=== PATIENT | female | born 1995 | race Caucasian/White ===

== ENCOUNTER → 2020-01-24 08:57 | Outpatient (BNVA) | payer OTHER, SELFPAY | PROVIDERS: PCP Nurse Practitioner Family; Referring Provider Nurse Practitioner Family; Visit Provider Nurse Practitioner | DX: Z76.89 Persons encountering health services in other specified circumstances (principal) ==

== ENCOUNTER 2020-03-17 06:12 | Outpatient (REF) | payer OTHER, SELFPAY | END 2020-03-17 06:13 | disposition home or self-care (01) | LOC: HO.LAB 06:12 | PROVIDERS: PCP Nurse Practitioner Family; Visit Provider Internal Medicine | DX: Z20.828 Contact with and (suspected) exposure to other viral communicable diseases (principal) | CPT/HCPCS: C9803; U0003 ==

== ENCOUNTER 2020-06-26 09:30 | Outpatient (REF) | payer OTHER, SELFPAY ==
[2020-06-26 10:35] LABS: MANUAL DIFF FLAG NO
[2020-06-26 10:48] LABS: Basophils Percent Auto 0.6 % (0-2); Eosinophils Absolute Auto 0.2 X10*3/uL (0.0-0.4); Eosinophils Percent Auto 3.2 % (0-4); Hematocrit 40.1 % (37-47); Hemoglobin 13.2 g/dl (12.0-16.0); Imm Gran Abs Auto 0.04 X10*3/uL (0.00-0.03); Imm Gran Pct Auto 0.6 % (0.0-0.4); Lymphocytes Absolute Auto 1.5 X10*3/uL (1.2-4.9); Lymphocytes Percent Auto 22.6 % (20-40); Mean Corpuscular HGB Conc 32.9 g/dl (31.0-35.0); Mean Corpuscular Hemoglobin 31.6 pg (27.0-33.0); Mean Corpuscular Volume 95.9 fL (80-98); Mean Platelet Volume 10.5 fL (9.4-12.3); Monocytes Absolute Auto 0.6 X10*3/uL (0.1-1.2); Monocytes Percent Auto 8.3 % (2-11); Neutrophils Absolute Auto 4.3 X10*3/uL (2.0-8.3); Neutrophils Percent Auto 64.7 % (45-73); Platelet Count 177 X10*3/uL (160-400); Red Blood Count 4.18 X10*6/uL (4.20-5.50); Red Cell Distribution Width 11.5 % (11.0-16.0); White Blood Count 6.7 X10*3/uL (4.8-10.8)
[2020-06-26 11:31] LABS: Alanine Aminotransferase 12 U/L (0-31); Albumin Level 4.1 g/dL (3.5-5.0); Alkaline Phosphatase 66 U/L (39-117); Anion Gap 12 (12-20); Aspartate Amino Transferase 16 U/L (5-31); Bilirubin Total 0.4 mg/dL (0.0-1.0); Blood Urea Nitrogen 13 mg/dL (9-16); Calcium 8.9 mg/dL (8.4-10.2); Carbon Dioxide 24 mmol/L (22-29); Chloride 106 mmol/L (96-108); Creatinine Clr Calc Pharmacy 118.5; Estimated Glomerular Filt Rate > 60; Glucose Fasting 79 mg/dL (60-99); Potassium 4.3 mmol/L (3.3-5.1); Sodium 138 mmol/L (135-145)
[2020-06-26 11:37] LABS: TSH reflex Free T4 0.93 uIU/mL (0.32-4.0)
== END 2020-06-26 09:31 | disposition home or self-care (01) ==
LOC: HO.LAB 09:30
PROVIDERS: PCP Nurse Practitioner Family; Visit Provider Nurse Practitioner Family
DX: N30.90 Cystitis, unspecified without hematuria (principal); R11.0 Nausea
CPT/HCPCS: 36415; 80053; 84443; 85025

== ENCOUNTER → 2020-07-04 14:59 | Outpatient (BNVA) | payer OTHER, SELFPAY | PROVIDERS: PCP Nurse Practitioner Family; Visit Provider Surgery ==

== ENCOUNTER 2020-11-07 13:08 | Outpatient (REF) | payer OTHER, SELFPAY ==
[2020-11-08 06:01] LABS: CT PCR NOT DETECTED (Not Detect.); NG PCR NOT DETECTED (Not Detect.)
== END 2020-11-07 13:09 | disposition home or self-care (01) ==
LOC: HO.LAB 13:08
PROVIDERS: PCP Nurse Practitioner Family; Visit Provider Obstetrics & Gynecology
DX: Z01.419 Encounter for gynecological examination (general) (routine) without abnormal findings (principal); Z11.3 Encounter for screening for infections with a predominantly sexual mode of transmission
CPT/HCPCS: 87491; 87591; 88142

== ENCOUNTER 2020-12-04 10:17 | Outpatient (REF) | payer OTHER, SELFPAY ==
--- NOTE | ~2020-12-04 | XR_ITS ---
EXAMINATION: XR CHEST 2 VIEWS CLINICAL INFORMATION: Chest pain. COMPARISON: Prior chest radiographs as remote as 04/13/2007. TECHNIQUE: Frontal and lateral views of the chest were obtained. FINDINGS: The heart, great vessels, pulmonary vasculature and mediastinum are normal. The lungs show no focal infiltrate, effusion or pneumothorax. There is no acute osseous abnormality. XR/XR chest 2V IMPRESSION: No active cardiopulmonary disease.
[2020-12-04 11:15] LABS: D Dimer < 200 NG/ML
[2020-12-04 11:38] LABS: Alanine Aminotransferase 29 U/L (0-31); Albumin Level 4.4 g/dL (3.5-5.0); Alkaline Phosphatase 66 U/L (39-117); Anion Gap 13 (12-20); Aspartate Amino Transferase 22 U/L (5-31); Bilirubin Total 0.5 mg/dL (0.0-1.0); Blood Urea Nitrogen 13 mg/dL (9-16); Calcium 9.2 mg/dL (8.4-10.2); Carbon Dioxide 21 mmol/L (22-29); Chloride 110 mmol/L (96-108); Cholesterol 181 mg/dL; Estimated Glomerular Filt Rate > 60; Glucose Fasting 81 mg/dL (60-99); HDL Cholesterol 52 mg/dL; LDL Cholesterol Calculated 118 mg/dl; Potassium 4.2 mmol/L (3.3-5.1); Sodium 140 mmol/L (135-145); Total Protein 7.6 g/dL (6.5-8.0); Triglycerides 56 mg/dL
[2020-12-04 11:46] LABS: HCG Quantitative < 2 mIU/mL; TSH reflex Free T4 1.07 uIU/mL (0.32-4.0)
[2020-12-04 13:48] LABS: Glucose Urine UA NEG (NEG); Leukocyte Esterase Urine NEG (NEG); Nitrite Urine NEG (NEG); UACC Culture Trigger NO; Urine Blood TRACE (NEG); Urine Ketones NEG (NEG); Urine Protein NEG (NEG-TRACE)
[2020-12-04 13:50] LABS: Appearance Urine CLEAR; Color Urine YELLOW
[2020-12-04 14:10] LABS: RBC Urine 0-2 /HPF (0); Squamous Epithelial Cell Urine TRACE /LPF; WBC Urine 0 /HPF (0-4)
== END 2020-12-04 10:18 | disposition home or self-care (01) ==
LOC: HO.LAB 10:17
PROVIDERS: PCP Nurse Practitioner Family; Visit Provider Nurse Practitioner Family
DX: Z00.00 Encounter for general adult medical examination without abnormal findings (principal); R07.89 Other chest pain; N92.6 Irregular menstruation, unspecified
CPT/HCPCS: 36415; 71046; 80053; 80061; 81001; 84443; 84702; 85379

== ENCOUNTER → 2021-01-16 13:39 | Outpatient (BNVA) | payer OTHER, SELFPAY | PROVIDERS: PCP Nurse Practitioner Family; Referring Provider Nurse Practitioner Family; Visit Provider Nurse Practitioner ==

== ENCOUNTER 2021-02-06 10:22 | Outpatient (REF) | payer OTHER, SELFPAY ==
--- NOTE | ~2021-02-06 | US_ITS ---
EXAMINATION: US ABDOMEN COMPLETE CLINICAL INFORMATION: Epigastric pain. COMPARISON: Ultrasound abdomen 06/15/2019 TECHNIQUE: Real-time imaging of the abdominal viscera. FINDINGS: PANCREAS: Normal. ABDOMINAL AORTA: The proximal, mid, and distal segments are normal in caliber. INFERIOR VENA CAVA: Visualized portions are normal. LIVER: Normal. The liver is normal in size. The liver contour is normal. Parenchymal echogenicity is normal. No focal hepatic lesion. There is no intrahepatic biliary duct dilatation seen. GALLBLADDER: Normal. The gallbladder is physiologically distended without evidence of stones, sludge, polyps, wall thickening or pericholecystic fluid. COMMON BILE DUCT: Normal in caliber measuring 0.20 cm in diameter. RIGHT KIDNEY: Normal. No hydronephrosis. No renal calculi or focal parenchymal lesions. The kidney measures 10.3 cm in maximum dimension. LEFT KIDNEY: Normal. No hydronephrosis. No renal calculi or focal parenchymal lesions. The kidney measures 11.7 cm in maximum dimension. SPLEEN: Normal. The spleen measures 9.4 cm in maximum dimension. FREE FLUID: None. US/US abdomen complete IMPRESSION: Unremarkable study. No evidence for cholelithiasis or cholecystitis. No free fluid. No hydronephrosis.
== END 2021-02-06 10:23 | disposition home or self-care (01) ==
LOC: HO.US 10:22
PROVIDERS: PCP Nurse Practitioner Family; Visit Provider Nurse Practitioner Family
DX: R10.13 Epigastric pain (principal); K90.41 Non-celiac gluten sensitivity
CPT/HCPCS: 76700

== ENCOUNTER 2021-03-05 09:04 | Day surgery (SDC) | payer OTHER, SELFPAY ==
[2021-02-27 10:29] VITALS: BMI 30.2
--- NOTE | 2021-02-28 10:27 | P.CONAN_ITS ---
Documented by User: Bethany Bradford NP 02/28/21 10:32 HPI - Anesthesia Eval Consult details Narrative: 25yo F for Upper Endoscopy PMFSH Active Problems Active Problems: All Active Problems (Updated 01/16/21 @ 14:22 by JUSTINA Wilson) Nausea (Acute) Constipation (Acute) IUD check up (Acute) Well woman exam (Acute) Infected cyst of skin (Acute) Recurrent bacterial cystitis (Acute) Concussion (Acute) Epigastric pain (Acute) Gluten intolerance (Acute) Past Medical History Medical History Anxiety Depression High cholesterol Infected cyst of skin Nausea Family History Family History Father No problems noted. Mother No problems noted. Brother No problems noted. Surgical History Surgical History History of ankle surgery History of oral surgery Social History Social History Housing: House Alcohol intake: current Alcohol intake frequency: holidays/special occasions only Alcohol type: wine Patient Tobacco Use Status: Never used Tobacco Second Hand Smoke Exposure: Yes Use of substances other than those prescribed or required for medical reasons: No Are you DNR?: No Advance Directives: No Advance Directives Information Provided: Yes service: No Current occupational status: employed Current occupation: [employer] Current occupational exposures/hazards: No Meds Allergies Allergy/AdvReac Type Severity Reaction Status Date / Time clindamycin [CLINDAMYCIN] Allergy Mild RASH Verified 11/29/20 11:28 amoxicillin [AMOXICILLIN] Allergy Unknown RASH Verified 11/29/20 11:28 azithromycin [AZITHROMYCIN] AdvReac Unknown VOMITING Verified 11/29/20 11:28 Home Medications Medication Instructions Recorded Confirmed Last Taken Type ezetimibe 10 mg tablet 10 mg PO DAILY 06/26/20 01/16/21 Unknown History fluoxetine 20 mg capsule 20 mg PO DAILY 06/26/20 01/16/21 Unknown History propranolol 80 mg capsule,24 80 mg PO BEDTIME 06/26/20 01/16/21 Unknown History hr,extended release levonorgestrel 20 mcg/24 hours (7 INTRAUTERINE 11/07/20 01/16/21 Unknown History yrs) 52 mg intrauterine device (Mirena) sumatriptan succinate 100 mg tablet 100 mg PO Q4H 11/29/20 01/16/21 Unknown History lansoprazole 30 mg capsule,delayed 30 mg PO DAILY 01/16/21 01/16/21 Unknown History release Exam Exam Date and Time: February 28, 2021 1027 Height,Weight and Vital Signs: Height 5 ft 3 in Weight 77.564 kg Pertinent Lab Results Pertinent Lab Results: Laboratory Tests 06/26/20 12/04/20 09:55 10:15 WBC 6.7 Hgb 13.2 Hct 40.1 Plt Count 177 Sodium 140 Potassium 4.2 Chloride 110 H Carbon Dioxide 21 L BUN 13 Creatinine 0.76 D-Dimer 11/2020 <200 Narrative Narrative: EKG 11/2020 NSR CXR 11/2020 Nml Assessment and Plan Assessment Anesthesia Assessment: Chart Reviewed Documented by User: Umm Chu MD 03/05/21 10:15 [facility] Past Medical History Medical History Anxiety Depression High cholesterol Infected cyst of skin Nausea Family History Family History Father No problems noted. Mother No problems noted. Brother No problems noted. Family history of problems with anesthesia: No Surgical History Surgical History History of ankle surgery History of oral surgery History of Problems with Anesthesia: No Social History Social History Housing: House Alcohol intake: current Alcohol intake frequency: holidays/special occasions only Alcohol type: wine Patient Tobacco Use Status: Never used Tobacco Second Hand Smoke Exposure: Yes Use of substances other than those prescribed or required for medical reasons: No Are you DNR?: No Advance Directives: No Advance Directives Information Provided: Yes service: No Current occupational status: employed Current occupation: [employer] Current occupational exposures/hazards: No Meds Allergies Allergy/AdvReac Type Severity Reaction Status Date / Time clindamycin [CLINDAMYCIN] Allergy Mild RASH Verified 11/29/20 11:28 amoxicillin [AMOXICILLIN] Allergy Unknown RASH Verified 11/29/20 11:28 azithromycin [AZITHROMYCIN] AdvReac Unknown VOMITING Verified 11/29/20 11:28 Home Medications Medication Instructions Recorded Confirmed Last Taken Type ezetimibe 10 mg tablet 10 mg PO DAILY 06/26/20 01/16/21 Unknown History fluoxetine 20 mg capsule 20 mg PO DAILY 06/26/20 01/16/21 Unknown History propranolol 80 mg capsule,24 80 mg PO BEDTIME 06/26/20 01/16/21 Unknown History hr,extended release levonorgestrel 20 mcg/24 hours (7 INTRAUTERINE 11/07/20 01/16/21 Unknown History yrs) 52 mg intrauterine device (Mirena) sumatriptan succinate 100 mg tablet 100 mg PO Q4H 11/29/20 01/16/21 Unknown History lansoprazole 30 mg capsule,delayed 30 mg PO DAILY 01/16/21 01/16/21 Unknown History release Exam Airway Mallampati Class: II TM Dist: >3cm Neck ROM: Full Heart: rrr Lungs: cta Assessment and Plan Assessment Anesthesia Assessment: Anesthesia Plan Discussed and Chart Reviewed Final Anesthetic Review Family History of Problems with Anesthesia: No History of Problems with Anesthesia: No NPO: Yes ASA Class: II Final Preanesthetic Review: No Changes in Pt Med Stat, Meds/Allgs Chart Reviewed and Consent Obtained/Reviewed Patient Risk: Intermediate Procedure Risk: Intermediate Anesthetic Plan Anesthetic Plan: MAC: Disposition: Standard PACU
--- NOTE | 2021-03-05 09:44 | MHC.SHP ---
Pre-Procedural Eval Section A Date of Service: 03/05/21 Section B Chief Complaint: Epigastric Pain Details of Present Illness: nausea and early satiety Relevant Family History (Specify if Yes): No Relevant Social History: None Present Medications: see Short Stay Collaborative assessment Medical History: Significant History (Anxiety Depression High cholesterol Infected cyst of skin Nausea) History of Previous Operations: No relevant previous surgery Allergies: Allergies Allergy/AdvReac Type Severity Reaction Status Date / Time clindamycin [CLINDAMYCIN] Allergy Mild RASH Verified 11/29/20 11:28 amoxicillin [AMOXICILLIN] Allergy Unknown RASH Verified 11/29/20 11:28 azithromycin [AZITHROMYCIN] AdvReac Unknown VOMITING Verified 11/29/20 11:28 Review of Systems Sugical H&P ROS: Negative: Constitution, Cardiovascular, Respiratory, Neurological, Psychiatric, Hem-Onc, Allergic/Immunologic, Gastrointestinal, Genitourinary, Musculoskeletal, Integumentary, Endocrine and Eyes/Ears/Nose/Throat Exam Surgical H&P Exam: Normal: HEENT, Normal: Heart, Normal: Lungs, Normal: Extremities, Normal: Abdomen, Normal: Skin and Normal: Neurological Plan Diagnosis/Plan: Unchanged I have reviewed the history and physical and performed a pertinent physical examination on my patient. No changes have occurred unless specified.
[2021-03-05 10:07] VITALS: BP 118/81; PULSE 74; RESP 16; TEMP 36.8; O2SAT 99; BMI 29.2
[2021-03-05] MEDS: Lactated Ringers 1,000 ML 100 ML IVCONT (10:14)
--- NOTE | 2021-03-05 10:38 | P.BOP_ITS ---
Brief Operative Note Date of Service: 03/05/21 Pre-op diagnosis: nausea, and satiety Post-op diagnosis: same Procedure: see op note Surgeon: Jessica Suero MD Anesthesia: MAC Was an Lumber Stacker Driver used for this Procedure?: No Estimated blood loss (mL): 0 Condition: stable Disposition: PACU
--- NOTE | 2021-03-05 10:38 | W.PM.OPN ---
Operative Note Operative Note Date of Service: 03/05/21 Narrative: Procedure Description: EGD FLEXIBLE TRANSORAL UPPER GASTROINTESTINAL ENDOSCOPY UPPER ENDOSCOPY Consent: Indications for the procedure and potential complications of bleeding, perforation, reaction to medications and missed diagnosis were discussed with the patient and informed consent was obtained. Instrument: Olympus GIF H 190 J mid size upper endoscope Monitoring: Vital signs and clinical assessment, continuous EKG monitoring, Pulse oximetry, Carbon Dioxide monitoring and blood pressure monitoring were done throughout the procedure. Procedure: The patient was placed in the left lateral decubitis position and pre-procedure medications were administered and a bite block was placed. The endoscope was inserted into the mouth and advanced under direct vision to the third part of duodenum. A careful inspection was made as the upper endoscope was withdrawn including a retroflexed examination of the proximal stomach; Findings and interventions are described below. Findings: Larynx:normal Esophagus: GE junction at 36 cm, diaphragm hiatus at 38 cm, consistent with small sliding hiatal herni, LA grade B erosive esophagitis noted with inflammation and erythema around GEJ--bx taken from GEJ, and distal and proximal esophagus in separate jars. LES seemed lax. Stomach: Patchy gastric erythema. Biopsies were obtained. Grade 2 flap valve on retroflexed examination of the cardia. Duodenum: Normal bulb and descending duodenum, bx taken Intervention: Biopsies as noted above Impression/Findings: erosive esophagitis gastritis small hiatal hernia PLAN: Reflux precautions \confirm PPI history, may need to change formulation if compliant if bx neg and sx persist then GES to r/o gastroparesis
[2021-03-05 10:46] LABS: UPreg QC Valid YES; Urine Pregnancy NEGATIVE (NEGATIVE)
[2021-03-05 11:08] VITALS: BP 98/57; PULSE 81; RESP 16; TEMP 36.7; O2SAT 95
[2021-03-05] MEDS: ondansetron HCL 4 MG/2 ML VIAL IVPUSH (11:28)
[2021-03-05 11:30] VITALS: BP 101/65; PULSE 70; RESP 18; TEMP 36.7; O2SAT 100
== END 2021-03-05 12:23 | disposition home or self-care (01) ==
PROVIDERS: Nurse Practitioner; PCP Nurse Practitioner Family; Visit Provider Internal Medicine Gastroenterology
PROC: 0DJ08ZZ Inspection of Upper Intestinal Tract, Via Natural or Artificial Opening Endoscopic (ICD-10-PCS; CPT 43235; principal; 2021-03-05 10:10)
DX: K29.50 Unspecified chronic gastritis without bleeding (principal); K22.10 Ulcer of esophagus without bleeding; K44.9 Diaphragmatic hernia without obstruction or gangrene; K90.41 Non-celiac gluten sensitivity; K59.00 Constipation, unspecified; E78.00 Pure hypercholesterolemia, unspecified; F41.8 Other specified anxiety disorders; Z79.899 Other long term (current) drug therapy; Z88.0 Allergy status to penicillin; Z88.1 Allergy status to other antibiotic agents
CPT/HCPCS: 43239; 81025; 88305; 88342; J2405

== ENCOUNTER 2021-03-19 13:24 | Outpatient (REF) | payer OTHER, SELFPAY ==
[2021-03-22 08:06] LABS: Transglutaminase Ab IgG <1.0 U/mL; Transglutaminase IgA <1.0 U/mL
[2021-03-23 10:00] LABS: Gliadin Deamidated IgA Ab 3.2 U/mL; Gliadin Deamidated IgG Ab 31.7 U/mL
== END 2021-03-19 13:25 | disposition home or self-care (01) ==
LOC: HO.LAB 13:24
PROVIDERS: PCP Nurse Practitioner Family; Referring Provider Nurse Practitioner Family; Visit Provider Nurse Practitioner
DX: R10.13 Epigastric pain (principal); K90.41 Non-celiac gluten sensitivity; K22.10 Ulcer of esophagus without bleeding
CPT/HCPCS: 36415; 83516

== ENCOUNTER 2021-04-09 11:14 | Outpatient (REF) | payer OTHER, SELFPAY ==
[2021-04-09 12:30] LABS: Binax Internal Control QC Valid; Binax Lot number: 9864; Binax Now Covid-19 Ag Positive (Negative)
== END 2021-04-09 11:15 | disposition home or self-care (01) ==
LOC: HO.LAB 11:14
PROVIDERS: Visit Provider Internal Medicine
DX: Z20.822 Contact with and (suspected) exposure to COVID-19 (principal)
CPT/HCPCS: 36415; C9803

== ENCOUNTER → 2021-04-30 13:39 | Outpatient (BNVA) | payer OTHER, SELFPAY | PROVIDERS: PCP Nurse Practitioner Family; Referring Provider Nurse Practitioner Family; Visit Provider Nurse Practitioner ==

== ENCOUNTER 2021-11-12 13:38 | Outpatient (REF) | payer OTHER, SELFPAY ==
[2021-11-13 02:25] LABS: CT PCR NOT DETECTED (Not Detect.); NG PCR NOT DETECTED (Not Detect.)
== END 2021-11-12 13:39 | disposition home or self-care (01) ==
LOC: HO.LAB 13:38
PROVIDERS: Visit Provider Obstetrics & Gynecology
DX: Z30.432 Encounter for removal of intrauterine contraceptive device (principal)
CPT/HCPCS: 58301; 87491; 87591

== ENCOUNTER 2021-11-29 08:02 | Outpatient (REF) | payer OTHER, SELFPAY ==
[2021-11-29 08:21] LABS: MANUAL DIFF FLAG NO
[2021-11-29 08:51] LABS: Basophils Percent Auto 0.4 % (0-2); Eosinophils Absolute Auto 0.2 X10*3/uL (0.0-0.4); Eosinophils Percent Auto 3.1 % (0-4); Imm Gran Abs Auto 0.04 X10*3/uL (0.00-0.03); Imm Gran Pct Auto 0.6 % (0.0-0.4); Lymphocytes Absolute Auto 1.6 X10*3/uL (1.2-4.9); Lymphocytes Percent Auto 22.3 % (20-40); Mean Corpuscular HGB Conc 34.2 g/dl (31.0-35.0); Mean Corpuscular Hemoglobin 32.3 pg (27.0-33.0); Mean Corpuscular Volume 94.3 fL (80.0-98.0); Mean Platelet Volume 10.2 fL (9.4-12.3); Monocytes Absolute Auto 0.6 X10*3/uL (0.1-1.2); Monocytes Percent Auto 9.1 % (2-11); Neutrophils Absolute Auto 4.5 x10*3/uL (2.0-8.3); Neutrophils Percent Auto 64.5 % (45-73); Platelet Count 200 X10*3/uL (160-400); Red Blood Count 4.03 X10*6/uL (4.20-5.50); Red Cell Distribution Width 11.6 % (11.0-16.0)
[2021-11-29 09:22] LABS: Alanine Aminotransferase 27 U/L (0-31); Albumin Level 3.9 g/dL (3.5-5.0); Alkaline Phosphatase 76 U/L (39-117); Anion Gap 14 (12-20); Aspartate Amino Transferase 19 U/L (5-31); Bilirubin Total 0.7 mg/dL (0.0-1.0); Blood Urea Nitrogen 16 mg/dL (9-16); Calcium 8.6 mg/dL (8.4-10.2); Carbon Dioxide 21 mmol/L (22-29); Chloride 106 mmol/L (96-108); Estimated Glomerular Filt Rate > 60; Glucose Random 94 mg/dL (60-115); Iron 84 mcg/dL (30-160); Percent Iron Saturation 28 % (15-50); Potassium 4.1 mmol/L (3.3-5.1); Sodium 137 mmol/L (135-145); Total Iron Binding Capacity 295 mcg/dL (228-428); Unsaturated Iron Binding 211 ug/dL
[2021-11-29 09:44] LABS: Ferritin 49 ng/mL (10-122)
[2021-11-29 10:01] LABS: Vitamin B12 358 pg/mL (200-900)
[2021-11-29 17:30] LABS: Appearance Urine Cloudy; Color Urine Yellow; Glucose Urine UA Negative (Negative); Leukocyte Esterase Urine Small (1+) (Negative); Nitrite Urine Negative (Negative); Urine Blood Negative (Negative); Urine Ketones Negative (Negative); Urine Protein Negative (Neg-Trace)
[2021-11-29 18:22] LABS: Bacteria Urine 2+ (None Seen); Hyaline Casts Urine 0-2 /LPF (0-2); RBC Urine 0-2 /HPF (0-2); Squamous Epithelial Cell Urine >20 /HPF (0-2); UACC Culture Trigger YES
[2021-12-01 08:57] LABS: A. Phagocytphilium DNA,RT-PCR NOT DETECTED (NOT DETECTED); Babesia Microti DNA, RT-PCR NOT DETECTED (NOT DETECTED); Borrelia Miyamotoi,DNA RT-PCR NOT DETECTED (NOT DETECTED); E.Chaffeensis DNA RT-PCR NOT DETECTED (NOT DETECTED); Lyme(Borrelia ssp)DNA RT-PCR NOT DETECTED (NOT DETECTED)
[2021-12-02 15:28] LABS: Source-Tick borne disease BLOOD
[2021-12-05 11:47] LABS: Anti Nuclear Antibody Screen NEGATIVE (NEGATIVE)
== END 2021-11-29 08:03 | disposition home or self-care (01) ==
LOC: HO.LAB 08:02
PROVIDERS: PCP Nurse Practitioner Family; Visit Provider Nurse Practitioner Family
DX: R53.83 Other fatigue (principal)
CPT/HCPCS: 36415; 80053; 81001; 82607; 82728; 82746; 83540; 84443; 85025; 86038; 86039; 87086; 87798; 87801

== ENCOUNTER 2021-12-03 10:20 | Outpatient (REF) | payer OTHER, SELFPAY ==
--- NOTE | ~2021-12-03 | FL_ITS ---
EXAMINATION: FL BARIUM SWALLOW CLINICAL INFORMATION: Ulcer of esophagitis. COMPARISON: None. TECHNIQUE: Barium swallow examination is performed using fluoroscopic evaluation in addition to multiple fluoroscopic spot views. The patient is imaged both upright and prone and using both thick and thin sulfate along with effervescent granules. Barium tablet was also administered. Fluoroscopy time: 0.6 minutes DAP: 2.8 Gy-cm2. Images: 36. FINDINGS: The swallowing mechanism is normal. No aspiration or penetration is seen. There is a small sliding-type hiatal hernia. There is mild gastroesophageal reflux. The esophagus otherwise normal. No ulcer is appreciated. Tablet passed freely into the stomach. FL/FL barium swallow IMPRESSION: Small sliding-type hiatal hernia and mild gastroesophageal reflux.
== END 2021-12-03 10:21 | disposition home or self-care (01) ==
LOC: HO.XRAY 10:20
PROVIDERS: Visit Provider Nurse Practitioner
DX: K22.10 Ulcer of esophagus without bleeding (principal)
CPT/HCPCS: 74220

== ENCOUNTER 2022-02-14 08:57 | Outpatient (REF) | payer OTHER, SELFPAY ==
--- NOTE | ~2022-02-14 | XR_ITS ---
EXAMINATION: XR SHOULDER, RIGHT CLINICAL INFORMATION: Right shoulder pain. COMPARISON: None TECHNIQUE: AP external rotation, Grashey, scapular Y, and axillary views of the right shoulder. FINDINGS: The bones and soft tissues are normal. No fracture. Glenohumeral and acromioclavicular alignment is anatomic with normal joint space. No abnormal soft tissue calcifications. XR/XR shoulder RT min 2V IMPRESSION: Unremarkable right shoulder.
== END 2022-02-14 08:58 | disposition home or self-care (01) ==
LOC: HO.HMGCX 08:57
PROVIDERS: PCP Nurse Practitioner Family; Visit Provider Nurse Practitioner Family
DX: S49.91XD Unspecified injury of right shoulder and upper arm, subsequent encounter (principal)
CPT/HCPCS: 73030

== ENCOUNTER 2022-04-04 09:28 | Outpatient (REF) | payer OTHER, SELFPAY ==
[2022-04-04 09:47] LABS: MANUAL DIFF FLAG NO
[2022-04-04 10:26] LABS: Appearance Urine Cloudy; Color Urine Yellow; Glucose Urine UA Negative (Negative); Leukocyte Esterase Urine Trace (Negative); Nitrite Urine Negative (Negative); PH 7.5 (5.0-9.0); Specific Gravity - Urine <= 1.005 (1.005-1.025); UMIC TRIGGER UACC YES; Urine Blood Negative (Negative); Urine Ketones Negative (Negative); Urine Protein Negative (Neg-Trace)
[2022-04-04 10:30] LABS: Bacteria Urine None Seen (None Seen); Hyaline Casts Urine 0-2 /LPF (0-2); RBC Urine 0-2 /HPF (0-2); WBC Urine 0-5 /HPF (0-5)
[2022-04-04 10:32] LABS: Basophils Absolute Auto 0.1 X10*3/uL (0.0-0.2); Basophils Percent Auto 0.7 % (0-2); Eosinophils Absolute Auto 0.4 X10*3/uL (0.0-0.4); Eosinophils Percent Auto 5.7 % (0-4); Hematocrit 39.9 % (37.0-47.0); Hemoglobin 13.2 g/dl (12.0-16.0); Imm Gran Abs Auto 0.08 X10*3/uL (0.00-0.03); Imm Gran Pct Auto 1.1 % (0.0-0.4); Lymphocytes Absolute Auto 1.7 X10*3/uL (1.2-4.9); Lymphocytes Percent Auto 22.2 % (20-40); Mean Corpuscular HGB Conc 33.1 g/dl (31.0-35.0); Mean Corpuscular Hemoglobin 31.4 pg (27.0-33.0); Mean Corpuscular Volume 94.8 fL (80.0-98.0); Monocytes Absolute Auto 0.6 X10*3/uL (0.1-1.2); Monocytes Percent Auto 8.4 % (2-11); Neutrophils Absolute Auto 4.6 x10*3/uL (2.0-8.3); Neutrophils Percent Auto 61.9 % (45-73); Platelet Count 207 X10*3/uL (160-400); Red Blood Count 4.21 X10*6/uL (4.20-5.50); Red Cell Distribution Width 11.9 % (11.0-16.0); White Blood Count 7.4 X10*3/uL (4.8-10.8)
[2022-04-04 11:23] LABS: Alanine Aminotransferase 18 U/L (0-31); Alkaline Phosphatase 81 U/L (39-117); Anion Gap 10 (12-20); Aspartate Amino Transferase 16 U/L (5-31); Bilirubin Total 0.6 mg/dL (0.0-1.0); Blood Urea Nitrogen 14 mg/dL (9-16); Calcium 9.1 mg/dL (8.4-10.2); Carbon Dioxide 24 mmol/L (22-29); Chloride 106 mmol/L (96-108); Cholesterol 189 mg/dL; Estimated Glomerular Filt Rate > 60; Glucose Fasting 85 mg/dL (60-99); HDL Cholesterol 45 mg/dL; LDL Cholesterol Calculated 127 mg/dl; Sodium 136 mmol/L (135-145); TSH reflex Free T4 1.26 uIU/mL (0.32-4.0); Total Protein 7.1 g/dL (6.5-8.0); Triglycerides 88 mg/dL
== END 2022-04-04 09:29 | disposition home or self-care (01) ==
LOC: HO.LAB 09:28
PROVIDERS: PCP Nurse Practitioner Family; Visit Provider Nurse Practitioner Family
DX: Z00.00 Encounter for general adult medical examination without abnormal findings (principal)
CPT/HCPCS: 36415; 80053; 80061; 81001; 84443; 85025

== ENCOUNTER 2022-08-28 07:31 | Outpatient (REF) | payer OTHER, SELFPAY ==
[2022-08-28 08:32] LABS: HCG Quantitative < 2 mIU/mL
== END 2022-08-28 07:32 | disposition home or self-care (01) ==
LOC: HO.LAB 07:31
PROVIDERS: PCP Nurse Practitioner Family; Visit Provider Nurse Practitioner Family
DX: N92.6 Irregular menstruation, unspecified (principal)
CPT/HCPCS: 36415; 84702

== ENCOUNTER → 2022-09-13 08:00 | Outpatient (BNVA) | payer OTHER, SELFPAY | PROVIDERS: PCP Nurse Practitioner Family; Visit Provider Advanced Practice Midwife | DX: O99.350 Diseases of the nervous system complicating pregnancy, unspecified trimester (principal); Z3A.00 Weeks of gestation of pregnancy not specified; G43.109 Migraine with aura, not intractable, without status migrainosus; G25.0 Essential tremor; O99.340 Other mental disorders complicating pregnancy, unspecified trimester; F32.A Depression, unspecified; Z79.899 Other long term (current) drug therapy | CPT/HCPCS: 81025 ==

== ENCOUNTER 2022-09-27 12:52 | Outpatient (REF) | payer OTHER, SELFPAY ==
--- NOTE | ~2022-09-27 | US_ITS ---
EXAMINATION: US OBSTETRICAL ULTRASOUND CLINICAL INFORMATION: Irregular menstrual history. Check viability. COMPARISON: None available. LMP: 08/07/2022. Gestational age by maternal dates is by dates 7 weeks 2 days. Estimated date of delivery by maternal dates is 05/14/2023. TECHNIQUE: Transabdominal and transvaginal first trimester OB ultrasound FINDINGS: There is a single intrauterine gestational sac with visible yolk sac, embryo/fetus, and cardiac activity. There is no significant subchorionic hemorrhage or hematoma. HR: 82 beats per minute. CRL (crown rump length): 0.47 cm (6 weeks 2 days +/- 4 days). JUDY (estimated date of delivery): 05/21/2023 +/- 4 days. MATERNAL ADNEXA: The right maternal ovary measures 2.9 x 1.4 x 1.4 cm. The left maternal ovary measures 2.8 x 1.9 x 2.6 cm. Small simple cyst measuring 1.3 x 1.5 x 1.1 cm. There is no significant maternal adnexal mass. No maternal pelvic ascites. US/US OB pelvic and transvaginal IMPRESSION: 1. Single intrauterine gestation with ultrasound gestational age of 6 weeks 2 days +/- 4 days. 2. Estimated date of delivery is 09/19/2023 +/- 4 days. 3. Low heart rate question secondary to early gestational age.
== END 2022-09-27 12:53 | disposition home or self-care (01) ==
LOC: HO.US 12:52
PROVIDERS: PCP Nurse Practitioner Family; Visit Provider Advanced Practice Midwife
DX: Z34.91 Encounter for supervision of normal pregnancy, unspecified, first trimester (principal); Z3A.01 Less than 8 weeks gestation of pregnancy
CPT/HCPCS: 76801; 76817

== ENCOUNTER 2022-10-03 10:23 | Outpatient (REF) | payer OTHER, SELFPAY ==
[2022-10-03 10:35] LABS: MANUAL DIFF FLAG NO
[2022-10-03 10:41] LABS: Basophils Percent Auto 0.5 % (0-2); Eosinophils Absolute Auto 0.1 X10*3/uL (0.0-0.4); Eosinophils Percent Auto 1.1 % (0-4); Hemoglobin 12.6 g/dl (12.0-16.0); Imm Gran Abs Auto 0.03 X10*3/uL (0.00-0.03); Imm Gran Pct Auto 0.4 % (0.0-0.4); Lymphocytes Absolute Auto 1.2 X10*3/uL (1.2-4.9); Lymphocytes Percent Auto 15.4 % (20-40); Mean Corpuscular HGB Conc 34.1 g/dl (31.0-35.0); Mean Corpuscular Hemoglobin 31.7 pg (27.0-33.0); Mean Platelet Volume 9.5 fL (9.4-12.3); Monocytes Absolute Auto 0.5 X10*3/uL (0.1-1.2); Monocytes Percent Auto 7.1 % (2-11); Neutrophils Absolute Auto 5.7 x10*3/uL (2.0-8.3); Neutrophils Percent Auto 75.5 % (45-73); Platelet Count 211 X10*3/uL (160-400); Red Blood Count 3.98 X10*6/uL (4.20-5.50); Red Cell Distribution Width 11.9 % (11.0-16.0); White Blood Count 7.6 X10*3/uL (4.8-10.8)
[2022-10-03 11:40] LABS: TSH reflex Free T4 0.26 uIU/mL (0.32-4.0)
[2022-10-03 12:06] LABS: Appearance Urine Clear; Color Urine Yellow; Glucose Urine UA Negative (Negative); Leukocyte Esterase Urine Negative (Negative); Nitrite Urine Negative (Negative); PH 7.5 (5.0-9.0); Urine Blood Negative (Negative); Urine Ketones Negative (Negative); Urine Protein Negative (Neg-Trace)
[2022-10-03 13:03] LABS: Free T4 (Free Thyroxine) 0.99 ng/dL (0.71-1.85)
== END 2022-10-03 10:24 | disposition home or self-care (01) ==
LOC: HO.LAB 10:23
PROVIDERS: PCP Nurse Practitioner Family; Visit Provider Nurse Practitioner Family
DX: F32.9 Major depressive disorder, single episode, unspecified (principal); F41.9 Anxiety disorder, unspecified
CPT/HCPCS: 36415; 81003; 84439; 84443; 85025

== ENCOUNTER 2022-10-04 08:36 | Outpatient (REF) | payer OTHER, SELFPAY ==
[2022-10-04 10:02] LABS: Alanine Aminotransferase 20 U/L (0-31); Albumin Level 3.6 g/dL (3.5-5.0); Alkaline Phosphatase 62 U/L (39-117); Anion Gap 13 (12-20); Aspartate Amino Transferase 16 U/L (5-31); Bilirubin Total 0.3 mg/dL (0.0-1.0); Blood Urea Nitrogen 9 mg/dL (9-16); Calcium 9.2 mg/dL (8.4-10.2); Carbon Dioxide 22 mmol/L (22-29); Chloride 107 mmol/L (96-108); Estimated Glomerular Filt Rate > 60; Glucose Random 89 mg/dL (60-115); Potassium 4.1 mmol/L (3.3-5.1); Sodium 138 mmol/L (135-145); Total Protein 6.9 g/dL (6.5-8.0)
[2022-10-04 10:07] LABS: TSH reflex Free T4 0.36 uIU/mL (0.32-4.0)
== END 2022-10-04 08:37 | disposition home or self-care (01) ==
LOC: HO.LAB 08:36
PROVIDERS: PCP Nurse Practitioner Family; Visit Provider Nurse Practitioner Family
DX: F32.9 Major depressive disorder, single episode, unspecified (principal); F41.9 Anxiety disorder, unspecified; R79.89 Other specified abnormal findings of blood chemistry
CPT/HCPCS: 36415; 80053; 84443

== ENCOUNTER 2022-10-09 12:54 | Outpatient (REF) | payer OTHER, SELFPAY ==
--- NOTE | ~2022-10-09 | US_ITS ---
EXAMINATION: US OBSTETRICAL ULTRASOUND CLINICAL INFORMATION: Low heart rate. COMPARISON: Obstetrical ultrasound dated 09/27/2022. LMP: Not provided. Gestational age by maternal dates is uncertain. Estimated date of delivery by maternal dates is uncertain. TECHNIQUE: Ultrasound of the maternal pelvis is performed using transabdominal transducer. M-mode Doppler is also performed. FINDINGS: There is a single intrauterine gestational sac with visible yolk sac, embryo/fetus, and cardiac activity. There is no significant subchorionic hemorrhage or hematoma. HR: 163 beats per minute. CRL (crown rump length): 1.72 cm (8 weeks and 2 days +/- 4 days). JUDY (estimated date of delivery): 05/19/2023 +/- 4 days. MATERNAL ADNEXA: The right maternal ovary is not visualized. The left maternal ovary measures 3.4 x 1.5 x 3.3 cm. There is no significant maternal adnexal mass. No maternal pelvic ascites. US/US OB <= 14 weeks fetus IMPRESSION: 1. Single intrauterine gestation with ultrasound gestational age of 8 weeks and 2 days +/- 4 days. 2. Estimated date of delivery is 05/19/2023 +/- 4 days. This is very close to the estimated date of delivery of 05/21/2023 provided on the recent obstetrical ultrasound examination. 3. No maternal adnexal mass or pelvic ascites.
== END 2022-10-09 12:55 | disposition home or self-care (01) ==
LOC: HO.US 12:54
PROVIDERS: PCP Nurse Practitioner Family; Visit Provider Advanced Practice Midwife
DX: O36.8310 Maternal care for abnormalities of the fetal heart rate or rhythm, first trimester, not applicable or unspecified (principal); Z3A.08 8 weeks gestation of pregnancy
CPT/HCPCS: 76801

== ENCOUNTER 2023-01-28 09:27 | Outpatient (AMB) | payer OTHER, SELFPAY ==
--- NOTE | 2023-01-28 09:29 | A.OFFPC_ITS ---
Vital Signs 01/28/23 09:31 Height 5 ft 3 in Weight 200 lb BMI 35.4 BP 120/78 Blood Pressure Location Lt brachial Position Sitting Pulse 78 Pulse Source Pulse Oximeter Pulse Oximetry (%) 98 Oxygen Delivery Method Room Air Intake Visit Reasons: 4M follow up Allergies clindamycin [CLINDAMYCIN] Allergy (Mild, Verified 01/28/23 09:31) RASH amoxicillin [AMOXICILLIN] Allergy (Unknown, Verified 01/28/23 09:31) RASH azithromycin [AZITHROMYCIN] Adverse Reaction (Unknown, Verified 01/28/23 09:31) VOMITING Tobacco use date assessed: 10/02/22 HPI 4M follow up HPI Details Anxiety/depression: Pt is currently taking fluoxetine 20mg. She reports doing well on this med. Denies any SI and HI. Pt is currently , following up with her OBGYN regularly. [facility] Medical History Essential tremor Positive test Early stage of Migraine with aura Hiatal hernia Erosive esophagitis High cholesterol Anxiety Depression Infected cyst of skin Nausea Surgical History History of esophagogastroduodenoscopy (EGD) History of ankle surgery History of oral surgery Family History Father No problems noted. Mother No problems noted. Brother No problems noted. Paternal Grandfather Substance use disorder Paternal Uncle Substance use disorder Maternal Grandfather Diabetes Maternal Grandmother Diabetes Social History Household Members: Significant Other Housing: House Alcohol intake: current Alcohol intake frequency: holidays/special occasions only Alcohol type: wine Patient Tobacco Use Status: Never used Tobacco e-Cigarette/Vaping Use: Never Used Second Hand Smoke Exposure: Yes service: No Current occupational status: employed Current occupation: [employer] Current occupational exposures/hazards: No Sexual orientation: Straight/Heterosexual Gender identity: Female Cognitive needs: No Hearing needs: No Vision needs: No Female Reproductive History Menstrual Age of Menarche: 13 Questionnaire Thrive Questionnaire Date Thrive assessed: 04/03/22 BRIDGER-7 AMB Questionnaire BRIDGER-7 Date BRIDGER - 7 assessed: 04/03/22 Source: Developed by Drs. Chavo Romero, July Garcia, Eusebio Lovell and colleagues, with an educational anum from [employer] Review of Systems Const Reports as per HPI Physical exam (Primary Care) Vital Signs: Last Vital Signs Pulse 78 01/28/23 09:31 BP 120/78 01/28/23 09:31 Pulse Ox 98 01/28/23 09:31 Oxygen Delivery Method Room Air 01/28/23 09:31 BMI result Body Mass Index 35.4 Tobacco/Smoking Status: Tobacco use Status Tobacco use date assessed 10/02/22 01/28/23 09:30 Patient Tobacco Use Status Never used Tobacco 01/28/23 09:30 e-Cigarette/Vaping Use Never Used 01/28/23 09:30 Thrive Assessment: Date of Thrive Assessment Date Thrive assessed 04/03/22 01/28/23 09:30 Const General: cooperative Orientation/consciousness: patient oriented x3 Resp Effort & Inspection: normal respiratory effort Auscultation: clear to auscultation bilaterally Cardio Rate: regular rate Rhythm: regular rhythm Heart sounds: S1 normal heart sound present, S2 normal heart sound present and no murmurs Neuro General: patient oriented x3 Extrem Right lower extremity: no edema Left lower extremity: no edema Psych Appearance: grossly normal Mental Status: mental status grossly normal Speech and movement: Normal speech and movement present Affect: normal affect Attitude: cooperative Thought process: Normal thought process present Thought content: Normal thought content present Insight: Good insight present (Psych) Judgement: Good judgement present (Psych) Assessment and Plan Assessment & Plan (1) Anxiety: Code(s): F41.9 - Anxiety disorder, unspecified Plan: Continue fluoxetine, cont to follow up with [facility]PHAL[facility] Plan The patient agreed to the use of a district medical examiner for this encounter. Scribed for KATTY Panchal by Patricia Friedman district medical examiner, on 01/28/2023 at 09:45 EST Orders: Orders Comprehensive Met. Panel Today F41.9 - Anxiety disorder, unspecified Coding Level of Care Code Est Pt Level 3 (15733) Diagnoses Anxiety F41.9
[2023-01-28 09:31] VITALS: BP 120/78; PULSE 78; O2SAT 98; BMI 35.4
== END 2023-01-28 10:45 | disposition home or self-care (01) ==
PROVIDERS: PCP Nurse Practitioner Family; Visit Provider Nurse Practitioner Family
DX: F41.9 Anxiety disorder, unspecified (principal)
CPT/HCPCS: 99213

== ENCOUNTER 2023-01-28 13:41 | Outpatient (REF) | payer OTHER, SELFPAY ==
[2023-01-28 15:03] LABS: Alanine Aminotransferase 16 U/L (0-31); Albumin Level 3.5 g/dL (3.5-5.0); Alkaline Phosphatase 90 U/L (39-117); Anion Gap 14 (12-20); Aspartate Amino Transferase 16 U/L (5-31); Bilirubin Total 0.2 mg/dL (0.0-1.0); Blood Urea Nitrogen 9 mg/dL (9-16); Calcium 9.7 mg/dL (8.4-10.2); Carbon Dioxide 21 mmol/L (22-29); Chloride 106 mmol/L (96-108); Estimated Glomerular Filt Rate > 60; Glucose Random 107 mg/dL (60-115); Sodium 137 mmol/L (135-145); Total Protein 7.4 g/dL (6.5-8.0)
== END 2023-01-28 13:42 | disposition home or self-care (01) ==
LOC: HO.LAB 13:41
PROVIDERS: PCP Nurse Practitioner Family; Visit Provider Nurse Practitioner Family
DX: F41.9 Anxiety disorder, unspecified (principal)
CPT/HCPCS: 36415; 80053

== ENCOUNTER → 2023-04-09 14:04 | Outpatient (BNVA) | payer OTHER, SELFPAY | PROVIDERS: PCP Nurse Practitioner Family; Visit Provider Nurse Practitioner ==

== ENCOUNTER 2023-04-15 16:17 | Outpatient (AMB) | payer OTHER, SELFPAY ==
--- NOTE | 2023-04-15 16:19 | A.OFFPC_ITS ---
Vital Signs 04/15/23 16:24 Height 5 ft 3 in Weight 206 lb BMI 36.5 BP 110/68 Blood Pressure Location Rt brachial Position Sitting Pulse 100 Pulse Source Pulse Oximeter Pulse Oximetry (%) 97 Oxygen Delivery Method Room Air Intake Visit Reasons: Annual PE Intake Note: Patient here to follow up for anxiety and depression. Allergies clindamycin [CLINDAMYCIN] Allergy (Mild, Verified 04/15/23 16:25) RASH amoxicillin [AMOXICILLIN] Allergy (Unknown, Verified 04/15/23 16:25) RASH azithromycin [AZITHROMYCIN] Adverse Reaction (Unknown, Verified 04/15/23 16:25) VOMITING Tobacco use date assessed: 04/15/23 Dental Screening Dental Screen Date: 04/15/23 Did you have a dental visit in the last 12 months?: Yes Did you have a dental problem in the last 6 months where you did not have access to dental care?: No Was dental information given to patient?: Patient has dentist HPI Annual PE HPI Details Pt is here for a PE. Will order labs. 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 [facility] Medical History Essential tremor Positive test Early stage of Migraine with aura Hiatal hernia Erosive esophagitis High cholesterol Anxiety Depression Infected cyst of skin Nausea Surgical History History of esophagogastroduodenoscopy (EGD) History of ankle surgery History of oral surgery Family History Father No problems noted. Mother No problems noted. Brother No problems noted. Paternal Grandfather Substance use disorder Paternal Uncle Substance use disorder Maternal Grandfather Diabetes Maternal Grandmother Diabetes Social History Household Members: Significant Other Housing: House Alcohol intake: current Alcohol intake frequency: holidays/special occasions only Alcohol type: wine Patient Tobacco Use Status: Never used Tobacco e-Cigarette/Vaping Use: Never Used Second Hand Smoke Exposure: Yes service: No Current occupational status: employed Current occupation: [employer] Current occupational exposures/hazards: No Sexual orientation: Straight/Heterosexual Gender identity: Female Cognitive needs: No Hearing needs: No Vision needs: No Female Reproductive History Menstrual Age of Menarche: 13 Questionnaire Thrive Questionnaire Date Thrive assessed: 04/03/22 AUDIT C Alcohol Use Questionnaire (AUDIT-C) 1. How often do you have a drink containing alcohol?: Never 3. How often do you have six or more drinks on one occasion?: Never Total Score: 0 Score Reviewed/Action Taken: No BRIDGER-7 AMB Questionnaire BRIDGER-7 Date BRIDGER - 7 assessed: 04/03/22 Source: Developed by Drs. Chavo Romeor, July Garcia, Eusebio Lovell and colleagues, with an educational anum from [employer]. Review of Systems Const Denies chills and Denies fever(s) Eyes Denies blurry vision ENT Denies vertigo, Denies dizziness and Denies sore throat Card Denies chest pain at rest, Denies chest pain with activity, Denies diaphoresis, Denies dyspnea and Denies dyspnea on exertion Resp Denies cough, Denies dyspnea, Denies dyspnea on exertion and Denies wheezing GI Denies abdominal pain, Denies melena, Denies hematochezia, Denies constipation, Denies diarrhea and Denies loose stools Denies hematuria Musc Denies numbness and Denies tingling Skin/Breast Denies lesions Neuro Denies vertigo, Denies dizziness, Denies numbness and Denies tingling Psych Denies anxiety, Denies depression, Denies homicidal ideation, Denies suicidal ideation and Denies other (substance abuse) Aller/Immun Denies wheezing Physical exam (Primary Care) Vital Signs: Last Vital Signs Pulse 100 04/15/23 16:24 BP 110/68 04/15/23 16:24 Pulse Ox 97 04/15/23 16:24 Oxygen Delivery Method Room Air 04/15/23 16:24 BMI result Body Mass Index 36.5 Tobacco/Smoking Status: Tobacco use Status Tobacco use date assessed 04/15/23 04/15/23 16:28 Patient Tobacco Use Status Never used Tobacco 04/15/23 16:20 e-Cigarette/Vaping Use Never Used 04/15/23 16:20 Thrive Assessment: Date of Thrive Assessment Date Thrive assessed 04/03/22 04/15/23 16:20 Const General: cooperative Nutritional Appearance: well nourished Orientation/consciousness: patient oriented x3 HENMT Head: Yes normal to inspection, Yes normocephalic and Yes atraumatic Ears: TM's normal bilaterally Eyes General: appearance normal, both eyes and all related structures Alignment and Position: alignment normal and position normal Neck Neck: Yes normal visual inspection and Yes no lymphadenopathy Thyroid: Thyroid normal Resp Effort & Inspection: normal respiratory effort Auscultation: clear to auscultation bilaterally Cardio Rate: regular rate Rhythm: regular rhythm Heart sounds: S1 normal heart sound present, S2 normal heart sound present and no murmurs GI Palpation (GI): Soft to palpation and nontender Auscultation: normal bowel sounds Skin Rashes: no rashes Neuro General: patient oriented x3, moves all extremities, no focal motor deficits and deep tendon reflexes 2+ bilaterally Romberg Test: Negative Psych Appearance: grossly normal Mental Status: mental status grossly normal Speech and movement: Normal speech and movement present Affect: normal affect Attitude: cooperative Thought process: Normal thought process present Thought content: Normal thought content present Insight: Good insight present (Psych) Judgement: Good judgement present (Psych) Coding
[2023-04-15 16:24] VITALS: BP 110/68; PULSE 100; O2SAT 97; BMI 36.5
--- NOTE | 2023-04-15 16:39 | MHC.PC.OV ---
Vital Signs 04/15/23 16:24 Height 5 ft 3 in Weight 206 lb BMI 36.5 BP 110/68 Blood Pressure Location Rt brachial Position Sitting Pulse 100 Pulse Source Pulse Oximeter Pulse Oximetry (%) 97 Oxygen Delivery Method Room Air Intake Visit Reasons: Anxiety and Depression F/U Allergies clindamycin [CLINDAMYCIN] Allergy (Mild, Verified 04/15/23 16:25) RASH amoxicillin [AMOXICILLIN] Allergy (Unknown, Verified 04/15/23 16:25) RASH azithromycin [AZITHROMYCIN] Adverse Reaction (Unknown, Verified 04/15/23 16:25) VOMITING Tobacco use date assessed: 10/02/22 HPI Anxiety and Depression F/U HPI Details her for follow up for depression and anxiety. Pt is currently on fluoxetine and tolerating it well. Pt is due to give in approx one month. She follow up with her CONTINUOUS CONVEYOR SCREEN DRIER regularly. Denies any SI or HI, and reports doing quite well overal, and offers no questions or concerns. [facility] Medical History Essential tremor Positive test Early stage of Migraine with aura Hiatal hernia Erosive esophagitis High cholesterol Anxiety Depression Infected cyst of skin Nausea Surgical History History of esophagogastroduodenoscopy (EGD) History of ankle surgery History of oral surgery Family History Father No problems noted. Mother No problems noted. Brother No problems noted. Paternal Grandfather Substance use disorder Paternal Uncle Substance use disorder Maternal Grandfather Diabetes Maternal Grandmother Diabetes Social History Household Members: Significant Other Housing: House Alcohol intake: current Alcohol intake frequency: holidays/special occasions only Alcohol type: wine Patient Tobacco Use Status: Never used Tobacco e-Cigarette/Vaping Use: Never Used Second Hand Smoke Exposure: Yes service: No Current occupational status: employed Current occupation: [email or web address] Current occupational exposures/hazards: No Sexual orientation: Straight/Heterosexual Gender identity: Female Cognitive needs: No Hearing needs: No Vision needs: No Female Reproductive History Menstrual Age of Menarche: 13 Questionnaire Thrive Questionnaire Date Thrive assessed: 04/03/22 BRIDGER-7 AMB Questionnaire BRIDGER-7 Date BRIDGER - 7 assessed: 04/03/22 Source: Developed by Drs. Chavo Romero, July Garcia, Eusebio Lovell and colleagues, with an educational anum from [employer]. Physical exam (Primary Care) Vital Signs: Last Vital Signs Pulse 100 04/15/23 16:24 BP 110/68 04/15/23 16:24 Pulse Ox 97 04/15/23 16:24 Oxygen Delivery Method Room Air 04/15/23 16:24 BMI result Body Mass Index 36.5 Tobacco/Smoking Status: Tobacco use Status Tobacco use date assessed 10/02/22 01/28/23 09:30 Patient Tobacco Use Status Never used Tobacco 01/28/23 09:30 e-Cigarette/Vaping Use Never Used 01/28/23 09:30 Thrive Assessment: Date of Thrive Assessment Date Thrive assessed 04/03/22 01/28/23 09:30 Const General: cooperative, healthy appearing, comfortable and no acute distress HENMT Head: Yes normal to inspection Resp Effort & Inspection: normal respiratory effort Auscultation: clear to auscultation bilaterally Cardio Rate: regular rate Rhythm: regular rhythm Heart sounds: S1 normal heart sound present and S2 normal heart sound present Psych Appearance: grossly normal Mental Status: mental status grossly normal Speech and movement: Normal speech and movement present Affect: normal affect Attitude: cooperative Thought process: Normal thought process present Thought content: Normal thought content present Insight: Good insight present (Psych) Judgement: Good judgement present (Psych) Assessment and Plan Assessment & Plan (1) Depression: Code(s): F32.9 - Major depressive disorder, single episode, unspecified (2) Anxiety: Code(s): F41.9 - Anxiety disorder, unspecified Coding Level of Care Code Est Pt Level 3 (09873) Diagnoses Depression F32.9 Anxiety F41.9
== END 2023-04-15 16:50 | disposition home or self-care (01) ==
PROVIDERS: PCP Nurse Practitioner Family; Visit Provider Nurse Practitioner Family
DX: F32.9 Major depressive disorder, single episode, unspecified (principal); F41.9 Anxiety disorder, unspecified
CPT/HCPCS: 99213

== ENCOUNTER 2023-08-04 09:51 | Outpatient (AMB) | payer OTHER, SELFPAY ==
--- NOTE | 2023-08-04 09:54 | MHC.PC.OV ---
Vital Signs 08/04/23 09:57 Height 5 ft 3 in Weight 180 lb BMI 31.9 BP 118/68 Blood Pressure Location Rt brachial Position Sitting Pulse 68 Pulse Source Pulse Oximeter Pulse Oximetry (%) 98 Oxygen Delivery Method Room Air Intake Visit Reasons: 6 Month follow up Intake Note: Patient here for anxiety follow up Allergies clindamycin [CLINDAMYCIN] Allergy (Mild, Verified 08/04/23 09:58) RASH amoxicillin [AMOXICILLIN] Allergy (Unknown, Verified 08/04/23 09:58) RASH azithromycin [AZITHROMYCIN] Adverse Reaction (Unknown, Verified 08/04/23 09:58) VOMITING Tobacco use date assessed: 08/04/23 Dental Screening Dental Screen Date: 08/04/23 Did you have a dental visit in the last 12 months?: Yes Did you have a dental problem in the last 6 months where you did not have access to dental care?: No Was dental information given to patient?: Patient has dentist HPI 6 Month follow up HPI Details anxiety/depression: Pt is doing well on fluoxetine. Pt had a child on 05/11/23. Pt is in great spirits. Denies any SI and HI. [facility] Medical History Essential tremor Positive test Early stage of Migraine with aura Hiatal hernia Erosive esophagitis High cholesterol Anxiety Depression Infected cyst of skin Nausea Surgical History History of esophagogastroduodenoscopy (EGD) History of ankle surgery History of oral surgery Family History Father No problems noted. Mother No problems noted. Brother No problems noted. Paternal Grandfather Substance use disorder Paternal Uncle Substance use disorder Maternal Grandfather Diabetes Maternal Grandmother Diabetes Social History Household Members: Significant Other Housing: House Alcohol intake: current Alcohol intake frequency: holidays/special occasions only Alcohol type: wine Patient Tobacco Use Status: Never used Tobacco e-Cigarette/Vaping Use: Never Used Second Hand Smoke Exposure: Yes service: No Current occupational status: employed Current occupation: [employer] Current occupational exposures/hazards: No Sexual orientation: Straight/Heterosexual Gender identity: Female Cognitive needs: No Hearing needs: No Vision needs: No Female Reproductive History Menstrual Age of Menarche: 13 Questionnaire Thrive Questionnaire Date Thrive assessed: 04/03/22 AUDIT C Alcohol Use Questionnaire (AUDIT-C) 1. How often do you have a drink containing alcohol?: Never 3. How often do you have six or more drinks on one occasion?: Never Total Score: 0 Score Reviewed/Action Taken: No BRIDGER-7 AMB Questionnaire BRIDGER-7 Date BRIDGER - 7 assessed: 04/03/22 Source: Developed by Drs. Chavo Romero, July Garcia, Eusebio Lovell and colleagues, with an educational anum from [employer]. Review of Systems Const Reports as per HPI Physical exam (Primary Care) Vital Signs: Last Vital Signs Pulse 68 08/04/23 09:57 BP 118/68 08/04/23 09:57 Pulse Ox 98 08/04/23 09:57 Oxygen Delivery Method Room Air 08/04/23 09:57 BMI result Body Mass Index 31.9 Tobacco/Smoking Status: Tobacco use Status Tobacco use date assessed 08/04/23 08/04/23 09:59 Patient Tobacco Use Status Never used Tobacco 08/04/23 09:55 e-Cigarette/Vaping Use Never Used 08/04/23 09:55 Thrive Assessment: Date of Thrive Assessment Date Thrive assessed 04/03/22 08/04/23 09:55 Const General: cooperative Orientation/consciousness: patient oriented x3 Resp Effort & Inspection: normal respiratory effort Auscultation: clear to auscultation bilaterally Cardio Rate: regular rate Rhythm: regular rhythm Heart sounds: S1 normal heart sound present, S2 normal heart sound present and Murmur heart sound present Neuro General: patient oriented x3 Psych Appearance: grossly normal Mental Status: mental status grossly normal Speech and movement: Normal speech and movement present Affect: normal affect Attitude: cooperative Thought process: Normal thought process present Thought content: Normal thought content present Insight: Good insight present (Psych) Judgement: Good judgement present (Psych) Assessment and Plan Assessment & Plan (1) Anxiety: Code(s): F41.9 - Anxiety disorder, unspecified Plan: Doing well (2) Depression: Code(s): F32.9 - Major depressive disorder, single episode, unspecified Plan: Doing well on fluoxetine Plan The patient agreed to the use of a biomedical engineering professor for this encounter. Scribed for REINA Panchal- by Patricia Friedman, biomedical engineering professor, on 08/04/2023 at 10:10 EST. Orders: Orders Complete Blood Count Auto Diff Today F32.9 - Major depressive disorder, single episode, unspecified, F41.9 - Anxiety disorder, unspecified Comprehensive [place]. Panel Fast Today F32.9 - Major depressive disorder, single episode, unspecified, F41.9 - Anxiety disorder, unspecified UA CC w/rflx Micro + Cult Today F32.9 - Major depressive disorder, single episode, unspecified, F41.9 - Anxiety disorder, unspecified TSH reflex Free T4 Today F32.9 - Major depressive disorder, single episode, unspecified, F41.9 - Anxiety disorder, unspecified Lipid Panel Today F32.9 - Major depressive disorder, single episode, unspecified, F41.9 - Anxiety disorder, unspecified Coding Level of Care Code Est Pt Level 3 (73204) Diagnoses Anxiety F41.9 Depression F32.9
[2023-08-04 09:57] VITALS: BP 118/68; PULSE 68; O2SAT 98; BMI 31.9
== END 2023-08-04 11:25 | disposition home or self-care (01) ==
PROVIDERS: PCP Nurse Practitioner Family; Visit Provider Nurse Practitioner Family
DX: F41.9 Anxiety disorder, unspecified (principal); F32.9 Major depressive disorder, single episode, unspecified
CPT/HCPCS: 99213

== ENCOUNTER 2024-01-12 08:14 | Outpatient (AMB) | payer OTHER, SELFPAY ==
[2024-01-12 08:17] VITALS: BP 110/66; PULSE 82; O2SAT 98; BMI 31.4
--- NOTE | 2024-01-12 08:17 | MHC.PC.OV ---
Vital Signs 01/12/24 08:17 Height 5 ft 3 in Weight 177 lb BMI 31.4 BP 110/66 Blood Pressure Location Lt brachial Position Sitting Pulse 82 Pulse Source Pulse Oximeter Pulse Oximetry (%) 98 Oxygen Delivery Method Room Air Intake Visit Reasons: annual PE Intake Note: pt is here for her annual exam Industrial Controller Required: No Accompanied by: Self / Same As Patient Allergies clindamycin [CLINDAMYCIN] Allergy (Mild, Verified 01/12/24 08:17) RASH amoxicillin [AMOXICILLIN] Allergy (Unknown, Verified 01/12/24 08:17) RASH azithromycin [AZITHROMYCIN] Adverse Reaction (Unknown, Verified 01/12/24 08:17) VOMITING Tobacco use date assessed: 08/04/23 Dental Screening Dental Screen Date: 08/04/23 HPI annual PE HPI Details Pt is here for a PE. Will order labs. 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 [facility] Medical History Essential tremor Positive test Early stage of Migraine with aura Hiatal hernia Erosive esophagitis High cholesterol Anxiety Depression Infected cyst of skin Nausea Surgical History History of esophagogastroduodenoscopy (EGD) History of ankle surgery History of oral surgery Family History Father No problems noted. Mother No problems noted. Brother No problems noted. Paternal Grandfather Substance use disorder Paternal Uncle Substance use disorder Maternal Grandfather Diabetes Maternal Grandmother Diabetes Social History Household Members: Significant Other Housing: House Alcohol intake: current Alcohol intake frequency: holidays/special occasions only Alcohol type: wine Patient Tobacco Use Status: Never used Tobacco e-Cigarette/Vaping Use: Never Used Second Hand Smoke Exposure: Yes service: No Current occupational status: employed Current occupation: [employer] Current occupational exposures/hazards: No Sexual orientation: Straight/Heterosexual Gender identity: Female Cognitive needs: No Hearing needs: No Vision needs: No Female Reproductive History Menstrual Age of Menarche: 13 Questionnaire PHQ-9 Over the last 2 weeks, how often have you been bothered by any of the following problems? 1. Little interest or pleasure in doing things: not at all 2. Feeling down, depressed, or hopeless: not at all 3. Trouble falling or staying asleep, or sleeping too much: not at all 4. Feeling tired or having little energy: not at all 5. Poor appetite or overeating: not at all 6. Feeling bad about yourself - or that you are a failure or have let yourself or your family down: not at all 7. Trouble concentrating on things, such as reading the newspaper or watching television: not at all 8. Moving or speaking so slowly that other people could have noticed. Or the opposite - being so fidgety or restless that you have been moving around a lot more than usual: not at all 9. Thoughts that you would be better off or of hurting yourself in some way: not at all Total score: 0 Depression Screening Interpretation: Negative Depression Screening Done: Yes 94820 - PHQ-9 Billing: Yes Source: Developed by Drs. Chavo Romero, July Garcia, Eusebio Lovell and colleagues, with an educational anum from [employer]. Thrive Questionnaire Date Thrive assessed: 01/12/24 I am a: Patient What is your living situation today?: I have a steady place to live Within the past 12 months, did the food you bought not last and you didn't have the money to get more?: Never true Within the past 12 months, did you worry whether your food would run out before you got money to buy more?: Never true Do you have trouble paying for medicines?: No Do you have trouble getting transportation to medical appointments?: No Do you have trouble paying your heating and electricity bill?: No Do you have trouble taking care of your child, family member or friend?: No Do you have trouble with day-to-day activities such as bathing, preparing meals, shopping, managing finances, etc.?: No Are you interested in more education?: No Please select the resources that you would like help with: None Currently or been in a relationship where the following occur: No concerns reported THRIVE Score: 0 AUDIT C Alcohol Use Questionnaire (AUDIT-C) 1. How often do you have a drink containing alcohol?: Monthly or less 2. How many drinks containing alcohol do you have on a typical day when you are drinking?: 1 or 2 3. How often do you have six or more drinks on one occasion?: Never Total Score: 1 Score Reviewed/Action Taken: Yes BRIDGER-7 AMB Questionnaire BRIDGER-7 Date BRIDGER - 7 assessed: 01/12/24 Feeling nervous, anxious, or on edge: 0 = Not at all Not being able to stop or control worryin = Not at all Worrying too much about different things: 0 = Not at all Trouble relaxin = Not at all Being so restless that it is hard to sit still: 0 = Not at all Becoming easily annoyed or irritable: 0 = Not at all Feeling afraid as if something awful might happen: 0 = Not at all Total BRIDGER-7 score (0-4 normal; 5-9 mild; 10-14 moderate; 15-21 severe): 0 Source: Developed by Drs. Chavo Romero, July Garcia, Eusebio Lovell and colleagues, with an educational anum from [employer]. BRIDGER-7 Assessment Billing BRIDGER-7 Assessment Tool: BRIDGER-7 Assessment 85687 Review of Systems Const Denies chills and Denies fever(s) Eyes Denies blurry vision ENT Denies vertigo, Denies dizziness and Denies sore throat Card Denies chest pain at rest, Denies chest pain with activity, Denies diaphoresis, Denies dyspnea and Denies dyspnea on exertion Resp Denies cough, Denies dyspnea, Denies dyspnea on exertion and Denies wheezing GI Denies abdominal pain, Denies melena, Denies hematochezia, Denies constipation, Denies diarrhea and Denies loose stools Denies hematuria Musc Denies numbness and Denies tingling Skin/Breast Denies lesions Neuro Denies vertigo, Denies dizziness, Denies numbness and Denies tingling Psych Denies anxiety, Denies depression, Denies homicidal ideation, Denies suicidal ideation and Denies other (substance abuse) Aller/Immun Denies wheezing Physical exam (Primary Care) Vital Signs: Last Vital Signs Pulse 82 01/12/24 08:17 BP 110/66 01/12/24 08:17 Pulse Ox 98 01/12/24 08:17 Oxygen Delivery Method Room Air 01/12/24 08:17 BMI result Body Mass Index 31.4 Tobacco/Smoking Status: Tobacco use Status Tobacco use date assessed 08/04/23 01/12/24 08:18 Patient Tobacco Use Status Never used Tobacco 01/12/24 08:18 e-Cigarette/Vaping Use Never Used 01/12/24 08:18 PHQ-9: PHQ-9 Score PHQ-9: Total score 0 01/12/24 08:18 Depression Screening Interpretation: Negative Thrive Assessment: Date of Thrive Assessment Date Thrive assessed 01/12/24 01/12/24 08:18 Currently or been in a relationship where the following occur: No concerns reported Const General: cooperative Nutritional Appearance: well nourished Orientation/consciousness: patient oriented x3 HENMT Head: Yes normal to inspection, Yes normocephalic and Yes atraumatic Ears: TM's normal bilaterally Eyes General: appearance normal, both eyes and all related structures Alignment and Position: alignment normal and position normal Neck Neck: Yes normal visual inspection, Yes no lymphadenopathy and Yes supple Resp Effort & Inspection: normal respiratory effort Auscultation: clear to auscultation bilaterally Cardio Rate: regular rate Rhythm: regular rhythm Heart sounds: S1 normal heart sound present, S2 normal heart sound present and no murmurs GI Palpation (GI): Soft to palpation and nontender Auscultation: normal bowel sounds Skin Rashes: no rashes Neuro General: patient oriented x3, moves all extremities, no focal motor deficits and deep tendon reflexes 2+ bilaterally Romberg Test: Negative Psych Appearance: grossly normal Mental Status: mental status grossly normal Speech and movement: Normal speech and movement present Affect: normal affect Attitude: cooperative Thought process: Normal thought process present Thought content: Normal thought content present Insight: Good insight present (Psych) Judgement: Good judgement present (Psych) Coding Level of Care Code Est Pt Prev Care 18-39y(49621) Diagnoses Physical exam Z00.00 Additional Codes BRIDGER-7 Assessment Billing - BRIDGER-7 Assessment Tool: BRIDGER-7 Assessment 40950 ([id number]) Assessment & Plan Assessment & Plan (1) Physical exam: Code(s): Z00.00 - Encounter for general adult medical examination without abnormal findings Category: Medical Plan The patient agreed to the use of a medical record librarian for this encounter. Scribed for KATTY Panchal by Patricia Friedman medical record librarian, on 01/12/2024 at 08:30 EST.
== END 2024-01-12 15:56 | disposition home or self-care (01) ==
PROVIDERS: PCP Nurse Practitioner Family; Visit Provider Nurse Practitioner Family
DX: Z00.00 Encounter for general adult medical examination without abnormal findings (principal)

== ENCOUNTER → 2024-01-12 08:14 | Outpatient (BNVA) | payer OTHER, SELFPAY | PROVIDERS: PCP Nurse Practitioner Family; Visit Provider Nurse Practitioner Family ==

== ENCOUNTER 2024-01-12 08:38 | Outpatient (REF) | payer OTHER, SELFPAY ==
[2024-01-12 09:59] LABS: MANUAL DIFF FLAG NO
[2024-01-12 10:12] LABS: Basophils Percent Auto 0.4 % (0-2); Eosinophils Absolute Auto 0.3 X10*3/uL (0.0-0.4); Eosinophils Percent Auto 3.2 % (0-4); Hematocrit 39.2 % (37.0-47.0); Hemoglobin 12.8 g/dl (12.0-16.0); Imm Gran Abs Auto 0.04 X10*3/uL (0.00-0.03); Imm Gran Pct Auto 0.5 % (0.0-0.4); Lymphocytes Percent Auto 12.2 % (20-40); Mean Corpuscular HGB Conc 32.7 g/dl (31.0-35.0); Mean Corpuscular Hemoglobin 30.1 pg (27.0-33.0); Mean Corpuscular Volume 92.2 fL (80.0-98.0); Mean Platelet Volume 10.9 fL (9.4-12.3); Monocytes Absolute Auto 0.4 X10*3/uL (0.1-1.2); Monocytes Percent Auto 5.5 % (2-11); Neutrophils Absolute Auto 6.1 x10*3/uL (2.0-8.3); Neutrophils Percent Auto 78.2 % (45-73); Platelet Count 160 X10*3/uL (160-400); Red Blood Count 4.25 X10*6/uL (4.20-5.50); Red Cell Distribution Width 12.3 % (11.0-16.0); White Blood Count 7.8 X10*3/uL (4.8-10.8)
[2024-01-12 10:49] LABS: Alanine Aminotransferase 13 U/L (0-31); Alkaline Phosphatase 108 U/L (39-117); Anion Gap 8 (12-20); Aspartate Amino Transferase 14 U/L (5-31); Bilirubin Total 0.5 mg/dL (0.0-1.0); Blood Urea Nitrogen 16 mg/dL (9-16); Calcium 8.9 mg/dL (8.4-10.2); Carbon Dioxide 24 mmol/L (22-29); Chloride 111 mmol/L (96-108); Cholesterol 173 mg/dL (<200); Estimated Glomerular Filt Rate > 60; Glucose Fasting 91 mg/dL (60-99); HDL Cholesterol 47 mg/dL (>40); LDL Cholesterol Calculated 113 mg/dL (<100); Potassium 3.9 mmol/L (3.3-5.1); Sodium 139 mmol/L (135-145); TSH reflex Free T4 0.79 uIU/mL (0.32-4.0); Total Protein 7.1 g/dL (6.5-8.0); Triglycerides 69 mg/dL (<150)
== END 2024-01-12 08:39 | disposition home or self-care (01) ==
LOC: HO.HMGCLDS 08:38
PROVIDERS: PCP Nurse Practitioner Family; Visit Provider Nurse Practitioner Family
DX: Z00.00 Encounter for general adult medical examination without abnormal findings (principal); F41.9 Anxiety disorder, unspecified; F32.9 Major depressive disorder, single episode, unspecified
CPT/HCPCS: 36415; 80053; 80061; 84443; 85025; 96127; 99395

== ENCOUNTER 2024-01-26 12:12 | Outpatient (REF) | payer OTHER, SELFPAY ==
[2024-01-26 12:25] LABS: MANUAL DIFF FLAG NO
[2024-01-26 12:58] LABS: Basophils Percent Auto 0.5 % (0-2); Eosinophils Absolute Auto 0.3 X10*3/uL (0.0-0.4); Eosinophils Percent Auto 3.8 % (0-4); Hematocrit 39.5 % (37.0-47.0); Hemoglobin 13.1 g/dl (12.0-16.0); Imm Gran Abs Auto 0.03 X10*3/uL (0.00-0.03); Imm Gran Pct Auto 0.5 % (0.0-0.4); Lymphocytes Absolute Auto 1.6 X10*3/uL (1.2-4.9); Lymphocytes Percent Auto 24.7 % (20-40); Mean Corpuscular HGB Conc 33.2 g/dl (31.0-35.0); Mean Corpuscular Hemoglobin 30.2 pg (27.0-33.0); Mean Platelet Volume 10.6 fL (9.4-12.3); Monocytes Absolute Auto 0.5 X10*3/uL (0.1-1.2); Monocytes Percent Auto 6.9 % (2-11); Neutrophils Absolute Auto 4.2 x10*3/uL (2.0-8.3); Neutrophils Percent Auto 63.6 % (45-73); Platelet Count 145 X10*3/uL (160-400); Red Blood Count 4.34 X10*6/uL (4.20-5.50); Red Cell Distribution Width 12.1 % (11.0-16.0); White Blood Count 6.6 X10*3/uL (4.8-10.8)
== END 2024-01-26 12:13 | disposition home or self-care (01) ==
LOC: HO.LAB 12:12
PROVIDERS: PCP Nurse Practitioner Family; Visit Provider Nurse Practitioner Family
DX: R79.89 Other specified abnormal findings of blood chemistry (principal)
CPT/HCPCS: 36415; 85025

== ENCOUNTER 2025-01-24 08:33 | Outpatient (AMB) | payer BC, SELFPAY ==
[2025-01-24 08:40] VITALS: BP 118/72; PULSE 75; RESP 16; TEMP 36.8; O2SAT 98; BMI 31.0
--- NOTE | 2025-01-24 08:40 | MHC.PC.OV ---
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 Allergies clindamycin (CLINDAMYCIN) Allergy (Mild, Verified 01/24/25 08:42) RASH amoxicillin (AMOXICILLIN) Allergy (Unknown, Verified 01/24/25 08:42) RASH azithromycin (AZITHROMYCIN) Adverse Reaction (Unknown, Verified 01/24/25 08:42) VOMITING Medication List - Last Reconciled 01/24/25 by Richard Mandujano, LAB SUPPORT TECH- fluoxetine 20 mg PO DAILY 90 days lansoprazole 30 mg PO BID Tobacco use date assessed: 01/24/25 Dental Screening Dental Screen Date: 01/24/25 Did you have a dental visit in the last 12 months?: No Did you have a dental problem in the last 6 months where you did not have access to dental care?: No Was dental information given to patient?: Patient has dentist HPI annual PE HPI Details History of Present Illness The patient is a 29-year-old female presenting for a physical examination. She is currently her second child, who was delivered approximately two months ago. The patient reports doing quite well and is under the care of a machine packager for her obstetric and gynecological needs. Health Maintenance Social History Review of Systems denies any cp, sob, abd pain, n/v, fevers, chills, blurred vision,. blood in stool, constipation, diarrhea, or si/hi. Physical Exam General: Cooperative, healthy appearing, comfortable, no acute distress and well developed Orientation: Patient oriented x3 Limitations: No limitations Head: Normal to inspection Ears: Hearing grossly normal bilaterally Nose: Normal external nose present Face and sinus: Normal facial exam Eyes: Appearance normal, both eyes and all related structures Neck: Normal visual inspection and Yes full ROM Respiratory: Normal respiratory effort and able to speak in complete sentences. Clear to auscultation bilaterally Cardiovascular: Regular rate and rhythm. Normal S1 and S2 GI: Normal to inspection. Soft to palpation and nontender : no other abnormalities noted Skin: No rashes or lesions noted Neuro: Patient oriented x3 Extremities: Normal to inspection Results Plan Discussion Notes Patient Instructions [facility] Medical History Essential tremor Positive test Early stage of Migraine with aura Hiatal hernia Erosive esophagitis High cholesterol Anxiety Depression Infected cyst of skin Nausea Surgical History History of esophagogastroduodenoscopy (EGD) History of ankle surgery History of oral surgery Family History Father No problems noted. Mother No problems noted. Brother No problems noted. Paternal Grandfather Substance use disorder Paternal Uncle Substance use disorder Maternal Grandfather Diabetes Maternal Grandmother Diabetes Social History Household Members: Significant Other Housing: House Alcohol intake: current Alcohol intake frequency: holidays/special occasions only Alcohol type: wine Patient Tobacco Use Status: Never used Tobacco e-Cigarette/Vaping Use: Never Used Second Hand Smoke Exposure: Yes service: No Current occupational status: employed Current occupation: [employer] Current occupational exposures/hazards: No Sexual orientation: Straight/Heterosexual Gender identity: Female Cognitive needs: No Hearing needs: No Vision needs: No Female Reproductive History Menstrual Age of Menarche: 13 Questionnaire PHQ-9 Over the last 2 weeks, how often have you been bothered by any of the following problems? 1. Little interest or pleasure in doing things: not at all 2. Feeling down, depressed, or hopeless: not at all 3. Trouble falling or staying asleep, or sleeping too much: not at all 4. Feeling tired or having little energy: not at all 5. Poor appetite or overeating: not at all 6. Feeling bad about yourself - or that you are a failure or have let yourself or your family down: not at all 7. Trouble concentrating on things, such as reading the newspaper or watching television: not at all 8. Moving or speaking so slowly that other people could have noticed. Or the opposite - being so fidgety or restless that you have been moving around a lot more than usual: not at all 9. Thoughts that you would be better off or of hurting yourself in some way: not at all Total score: 0 Depression Screening Interpretation: Negative Depression Screening Done: Yes 22066 - PHQ-9 Billing: Yes Source: Developed by July Dougherty Kurt Kroenke and colleagues, with an educational anum from [employer]. Thrive Questionnaire Date Thrive assessed: 01/12/24 I am a: Patient What is your living situation today?: I have a steady place to live Within the past 12 months, did the food you bought not last and you didn't have the money to get more?: Never true Within the past 12 months, did you worry whether your food would run out before you got money to buy more?: Never true Do you have trouble paying for medicines?: No Do you have trouble getting transportation to medical appointments?: No Do you have trouble paying your heating and electricity bill?: No Do you have trouble taking care of your child, family member or friend?: No Do you have trouble with day-to-day activities such as bathing, preparing meals, shopping, managing finances, etc.?: No Are you currently unemployed and looking for a job?: No Are you interested in more education?: No Please select the resources that you would like help with: None Currently or been in a relationship where the following occur: No concerns reported THRIVE Score: 0 AUDIT C Alcohol Use Questionnaire (AUDIT-C) 1. How often do you have a drink containing alcohol?: Never Total Score: 0 BRIDGER-7 AMB Questionnaire BRIDGER-7 Date BRIDGER - 7 assessed: 01/24/25 Feeling nervous, anxious, or on edge: 1 = Several days Not being able to stop or control worryin = Not at all Worrying too much about different things: 0 = Not at all Trouble relaxin = Not at all Being so restless that it is hard to sit still: 0 = Not at all Becoming easily annoyed or irritable: 0 = Not at all Feeling afraid as if something awful might happen: 0 = Not at all Total BRIDGER-7 score (0-4 normal; 5-9 mild; 10-14 moderate; 15-21 severe): 1 Source: Developed by July Dougherty Kurt Kroenke and colleagues, with an educational anum from [employer]. BRIDGER-7 Assessment Billing BRIDGER-7 Assessment Tool: BRIDGER-7 Assessment 30405 Physical exam (Primary Care) Vital Signs: Last Vital Signs Temp 98.3 F 01/24/25 08:40 Pulse 75 01/24/25 08:40 Resp 16 01/24/25 08:40 BP 118/72 01/24/25 08:40 Pulse Ox 8 L 01/24/25 08:40 Oxygen Delivery Method Room Air 01/24/25 08:40 BMI result Body Mass Index 31.0 Tobacco/Smoking Status: Tobacco use Status Tobacco use date assessed 01/24/25 01/24/25 08:46 Patient Tobacco Use Status Never used Tobacco 01/24/25 08:46 e-Cigarette/Vaping Use Never Used 01/24/25 08:46 PHQ-9: PHQ-9 Score PHQ-9: Total score 0 01/24/25 08:46 Depression Screening Interpretation: Negative Thrive Assessment: Date of Thrive Assessment Date Thrive assessed 01/12/24 01/24/25 08:46 Currently or been in a relationship where the following occur: No concerns reported Coding Level of Care Code Est Pt Prev Care [id number](13059) Diagnoses Physical exam Z00.00 Additional Codes BRIDGER-7 Assessment Billing - BRIDGER-7 Assessment Tool: BRIDGER-7 Assessment 07789 ([id number]) PHQ-9 - 83569 - PHQ-9 Billing: Yes ([id number]) Assessment & Plan Assessment & Plan (1) Physical exam: Code(s): Z00.00 - Encounter for general adult medical examination without abnormal findings Category: Medical Plan .
== END 2025-01-24 09:37 | disposition home or self-care (01) ==
PROVIDERS: PCP Nurse Practitioner Family; Visit Provider Nurse Practitioner Family
DX: Z00.00 Encounter for general adult medical examination without abnormal findings (principal)

== ENCOUNTER → 2025-01-24 08:33 | Outpatient (BNVA) | payer OTHER, SELFPAY | PROVIDERS: PCP Nurse Practitioner Family; Visit Provider Nurse Practitioner Family | DX: Z00.00 Encounter for general adult medical examination without abnormal findings (principal) | CPT/HCPCS: 96127 ==